=== PATIENT | female | born 1935 | race Caucasian/White ===

== ENCOUNTER 2016-11-23 10:20 | Outpatient (CLI) | payer MEDICARE, OTHER ==
[~2016-11-23] VITALS: Ht 162.6 cm; Wt 60.5 kg
--- NOTE | ~2016-11-23 | HEMODYNAMI ---
PATIENT:ALEXI ROYAL MEDICAL RECORD: [id number] : 35 LOCATION:[facility] ADMISSION DATE: 11/23/16 Generatedon:11/23/201613:51 Patient name: ALEXI ROYAL Patient #: [id number] SSN: : 1935 Date of study: 11/23/2016 Page: Of Hemodynamic Procedure Report Patient Data Patient Demographics Procedure consent was obtained First Name: ALEXI Gender: Female Last Name: LELE : 1935 Middle Initial: ROXANNA Age: 80 year(s) Patient #: [id number] Race: Unknown Additional ID: [id number] Contact details [address]: [address] [place] [address] State: [place] City: [place] Zip code: [address] Past Medical History Allergies Allergen Reaction Date Comments Reported Other allergy 11/23/2016 Codeine Admission Admission Data Admission Date: 11/23/2016 Admission Time: 10:20 Admit Source: Other Lab Results Lab Result Date: 11/23/2016 Lab Result Time: 11:05 Biochemistry Name Units Result Min Max BUN mg/dl 30 --(----)-* 7 18 Creatinine mg/dl 1.1 --(--*-)-- 0.6 1.3 CBC Name Units Result Min Max Hematocrit % 37.1 *-(----)-- 42 54 Hemoglobin g/dl 12.2 *-(----)-- 13.5 17.5 Procedure Procedure Types Cath Procedure Diagnostic Procedure LHC LH w/Coronaries PCI Procedure Coronary Stent Initial Miscellaneous Procedures Moderate Sedation up to 45 minutes Procedure Description Procedure Date Procedure Date: 11/23/2016 Procedure Start Time: 13:04 Procedure End Time: 13:50 Procedure Staff Name Function Joe Sanders MD Performing Physician Hipolito Stark RT Scrub Grace Nice RT Scrub Zain Lux RN Nurse Chinmay Nelson RN Business Functional Analyst Herberth Rios RT Monitor Procedure Data Cath Procedure Fluoroscopy Diagnostic fluoroscopy Total fluoroscopy Time: time: 14.6 min 14.6 min Diagnostic fluoroscopy Total fluoroscopy dose: 775 dose: 775 mGy mGy Contrast Material Contrast Material Type Amount (ml) Isovue 300 166 Entry Location Entry Primary Successful Side Size Upsize Upsize Entry Closure Succes sful Closure Location (Fr) 1 (Fr) 2 (Fr) Remarks Device Remarks Femoral Right 5 Fr 6 Fr Exoseal artery Short Estimated blood loss: 10 ml Diagnostic catheters Device Type Used For End Catheter Placement Cordis 5Fr JL 4.0 Procedure Catheter (MP) Cordis 5Fr 3DRC Catheter Procedure (MP) Cordis 5Fr Pigtail Procedure Catheter (MP) Procedure Complications No complications Procedure Medications Medication Administration Route Dosage Oxygen NC 2 l/min Lidocaine 2% added to field 20 Heparin Flush Bag added to field 2 bags (1000units/500ml NS) Zofran I.V. 4 mg Versed I.V. 1 mg Fentanyl I.V. 50 mcg Versed I.V. 1 mg Fentanyl I.V. 50 mcg Versed I.V. 1 mg Versed I.V. 1 mg Heparin Bolus I.V. 6000 units Plavix P.O. 600 mg Hemodynamics Rest HGB: 12.2 (g/dl) Heart Rate: 55 (bpm) Pressure Samples Time Site Value (mmHg) Purpose Heart Use Rate(bpm) 13:16 LV 123/-6,15 Snapshot 72 13:16 LV 110/-6,8 Snapshot 84 13:16 AO 112/48(73) Pullback 54 13:16 LV 102/-3,17 Pullback 54 Gradients Valve Time Site 1 Site 2 Mean SEP/DFP Peak To Heart Use (mmHg) (sec/min) Peak Rate (mmHg) (bpm) Aortic 13:16 LV AO 0 4 0 54 102/-3,17 112/48(73) Calculations Valve P-P Mean Valve Index Valve Source Name Gradient Area Flow (cm2) Aortic 0 0 0 0 Snapshots Pre Cath Intra NCS Post Cath Vital Signs Time Heart Resp SPO2 etCO2 [id number] NIBP (mmHg) Rhythm Pain Sedation Rate (ipm) (%) (mmHg) (mmHg) Status Level (bpm) 12:56:53 58 31 99 0 0 Measuring NSR 0 (11) 10(A) , No pain 12:57:32 61 19 99 0 0 No Cuff NSR 0 (11) 10(A) , No pain 12:58:38 60 17 98 0 0 140/83(112) NSR 0 (11) 10(A) , No pain 13:02:37 53 16 100 0 0 131/69(95) NSR 0 (11) 10(A) , No pain 13:06:43 54 17 98 0 0 123/63(96) NSR 0 (11) 9(A) , No pain 13:10:53 54 18 99 0 0 111/57(79) NSR 0 (11) 9(A) , No pain 13:15:44 51 16 99 0 0 111/59(90) NSR 0 (11) 9(A) , No pain 13:19:50 51 14 99 0 0 122/58(87) NSR 0 (11) 9(A) , No pain 13:23:58 49 28 99 0 0 119/62(95) NSR 0 (11) 9(A) , No pain 13:28:07 50 15 99 0 0 115/57(89) NSR 0 (11) 9(A) , No pain 13:33:07 53 14 99 0 0 117/60(95) NSR 0 (11) 9(A) , No pain 13:37:14 51 16 100 0 0 112/58(93) NSR 0 (11) 9(A) , No pain 13:41:22 48 15 100 0 0 119/60(78) NSR 0 (11) 9(A) , No pain 13:46:25 56 16 100 0 0 130/65(109) NSR 0 (11) 10(A) , No pain Medications Time Medication Route Dose Verified Delivered Reason Notes Effectiveness by by 12:55:56 Oxygen NC 2 Joe Buffie used for l/min Tommy Lux RN procedure 12:56:34 Lidocaine 2% added 20ml Joe Buffie used for to vial Tommy Lux RN procedure field 12:56:51 Heparin Flush added 2 Joe Buffie used for Bag to bags Tommy Lux RN procedure (1000units/500ml field NS) 12:57:03 Zofran I.V. 4 mg Joe Buffie Per physician Tommy Lux RN 13:03:30 Versed I.V. 1 mg Oje Buffie for sedation Tommy Lux RN 13:03:38 Fentanyl I.V. 50 Joe Buffie for sedation mcg Tommy Lux RN 13:09:34 Versed I.V. 1 mg Joe Buffie for sedation Tommy Lux RN 13:09:39 Fentanyl I.V. 50 Joe Buffie for sedation mcg Tommy Lux RN 13:24:41 Versed I.V. 1 mg Joe Buffie for sedation Tommy Lux RN 13:37:23 Versed I.V. 1 mg Joe Buffie for sedation Tommy Lux RN 13:40:09 Heparin Bolus I.V. 6,000 Joe Buffie for verifi ed units Tommy Lux RN anticoagulation with dr sanders 13:47:56 Plavix P.O. 600 Joe Buffie for mg Tommy Lux RN antiplatelet therapy Procedure Log Time Note 12:30:22 Chinmay Nelson RN sent for patient. Start room use. 12:38:56 Informed consent obtained and on chart 12:39:01 Admit Source: Other 12:39:21 Diagnostic Cath status Elective 12:39:32 Time tracking: Regular hours 12:39:36 Plan of Care:Hemodynamics will remain stable., Cardiac rhythm will remain stable., Comfort level will be maintained., Respiratory function will remain adequate., Patient/ family verbilizes understanding of procedure., Procedure tolerated without complication., Recovers from procedure without complications.. 12:40:54 H&P Date Dictated: 11/23/2016 New H&P dictated by physician.. 12:41:50 Patient received from Pre/Post Procedure Room to CCL 1 Alert and oriented. Tansferred to table in Supine position. 12:41:51 Warm blankets applied, and deandre hugger turned on for patient comfort. 12:41:51 Correct patient and procedure confirmed by team. 12:41:52 ECG and BP/O2 sat monitors applied to patient. 12:41:54 Pre-procedure instructions explained to patient. 12:41:54 Pre-op teaching completed and patient verbalized understanding. 12:43:15 Lab Result : Creatinine 1.1 mg/dl 12:43:15 Lab Result : BUN 30 mg/dl 12:43:15 Lab Result : Hemoglobin 12.2 g/dl 12:43:15 Lab Result : Hematocrit 37.1 % 12:43:40 Previous problem with sedation/anesthesia? No ? 12:43:42 Snore? Yes 12:43:43 Sleep apnea? No 12:43:46 Deviated septum? No 12:43:47 Opens mouth fully? Yes 12:43:48 Sticks out tongue? Yes 12:43:50 Airway obstruction? No ? 12:43:52 Dentures? No ? 12:43:56 Family in waiting room. 12:43:57 Patient NPO since Midnight. 12:44:08 Patient allergic to Other allergyCodeine 12:44:10 Is the patient allergic to Iodine/contrast media? No. 12:44:34 Is patient on blood thinner?Yes 12:44:36 Patient diabetic? No. 12:55:04 Vital chart was started 12:55:05 Baseline sample Acquired. 12:55:15 Rhythm: sinus rhythm 12:55:17 Full Disclosure recording started 12:55:23 Use device set Femoral Dx 12:55:24 Tegaderm 4 x 4 opened to sterile field. 12:55:25 Acist Manifold opened to sterile field. 12:55:25 Acist Hand Control opened to sterile field. 12:55:27 Acist Syringe opened to sterile field. 12:55:27 Bag Decanter opened to sterile field. 12:55:27 Medline Cath Pack opened to sterile field. 12:55:28 Terumo 5Fr Grovespring Sheath opened to sterile field. 12:55:28 St Francisco 260cm J .035 wire opened to sterile field. 12:55:30 Diagnostic Infinity 5Fr Multipack catheter opened to sterile field. 12:55:36 Lab results completed and on chart. 12:55:39 Right groin area was prepped with chlora-prep and draped in sterile fashion 12:55:40 Alarms reviewed by R. N. 12:55:40 Sharps counted by scrub and verified by R.N. 12:55:43 Physician arrived ::43 --------ALL STOP TIME OUT------ 12:55:43 Final Timeout: patient, procedure, and site verified with staff and physician. All members of the team are in agreement. 12:55:45 Right groin site verified by team. 12:55:48 Physical assessment completed. ASA score P 2 - A patient with mild systemic disease as per Joe Sanders MD. 12:55:52 Sedation plan: IV Moderate Sedation Versed, Fentanyl 12:55:56 Oxygen 2 l/min NC was administered by Zain Lux RN; used for procedure; 12:56:34 Lidocaine 2% 20ml vial added to field was administered by Zain Lux RN; used for procedure; 12:56:51 Heparin Flush Bag (1000units/500ml NS) 2 bags added to field was administered by Zain Lux RN; used for procedure; 12:57:03 Zofran 4 mg I.V. was administered by Zain Lux RN; Per physician; 13:02:45 Zero performed for pressure channel P1 13:03:16 Baseline sample Acquired. 13:03:30 Versed 1 mg I.V. was administered by Zain Lux RN; for sedation; 13:03:38 Fentanyl 50 mcg I.V. was administered by Zain Lux RN; for sedation; 13:04:41 Procedure started. 13:04:44 Local anesthetic to right femoral artery with Lidocaine 2% by Joe Sanders MD.INITIAL ACCESS ONLY 13:06:52 A 5 Fr sheath was inserted into the Right Femoral artery 13:06:58 A Cordis 5Fr JL 4.0 Catheter (MP) was advanced over the wire and used for Procedure. 13:09:34 Versed 1 mg I.V. was administered by Zain Lux RN; for sedation; 13:09:39 Fentanyl 50 mcg I.V. was administered by Zain Lux RN; for sedation; 13:09:43 LCA angiography performed. 13:10:07 Catheter exchanged over wire. 13:10:16 A Cordis 5Fr 3DRC Catheter (MP) was advanced over the wire and used for Procedure. 13:11:50 RCA angiography performed. 13:12:29 Catheter exchanged over wire. 13:12:34 A Cordis 5Fr Pigtail Catheter (MP) was advanced over the wire and used for Procedure. 13:16:26 LV gram done using SAN 13:16:28 Injector settings: Ml/sec: 10, Volume: 20, 13:16:37 EF : 50 % 13:17:48 Catheter removed. 13:17:54 Terumo 6Fr Gro[place]pring Sheath opened to sterile field. 13:18:14 High Pressure Extension Tubing (Tommy) opened to sterile field. 13:18:14 Coffey BMW [place] 2 J-tip 300cm 0.014 guide wir opened to sterile field. 13:18:15 Cordis 6FR XBLAD 3.5 guide catheter opened to sterile field. 13:18:16 Merit BasixCompak Inflation Kit opened to sterile field. 13:19:15 Sheath upsized to a 6 Fr Short. 13:20:29 6 Fr xblad 3.5 guide catheter was inserted over the wire 13:21:58 Guide Catheter removed. unable to cannulate vessel. 13:22:04 Cordis 6FR XBLAD 4.0 guide catheter opened to sterile field. 13:23:02 6 Fr xblad 4 guide catheter was inserted over the wire 13:24:41 Versed 1 mg I.V. was administered by Zain Lux RN; for sedation; 13:25:04 Guide Catheter removed. unable to cannulate vessel. 13:25:59 Medtronic Launcher 6Fr JL 4.0 guide catheter opened to sterile field. 13:28:41 6 Fr JL 4 guide catheter was inserted over the wire 13:28:47 Guide Catheter removed. unable to cannulate vessel. 13:29:01 Medtronic Launcher 6Fr AL 1.0 guide catheter opened to sterile field. 13:29:09 6 Fr AL 1 guide catheter was inserted over the wire 13:31:03 Guide Catheter removed. unable to cannulate vessel. 13:31:25 Sunn[place]ide Sci Mach 1 6Fr Q 4.0 guide catheter opened to sterile field. 13:31:30 6 Fr Q4 guide catheter was inserted over the wire 13:35:14 Guide Catheter removed. unable to cannulate vessel. 13:35:22 [place]ide Sci Mach 1 6Fr Q 3.5 guide catheter opened to sterile field. 13:35:32 6 Fr Q 3.5 guide catheter was inserted over the wire 13:37:23 Versed 1 mg I.V. was administered by Zain Lux RN; for sedation; 13:37:54 Guide Catheter removed. unable to cannulate vessel. 13:38:06 Medtronic Launcher 6Fr EBU 3.5 guide catheter opened to sterile field. 13:38:14 6 Fr EBU 3.5 guide catheter was inserted over the wire 13:40:09 Heparin Bolus 6,000 units I.V. was administered by Zain Lux RN; for anticoagulation; verified with dr sanders 13:40:27 BMW wire advanced. 13:43:50 Wire advanced across lesion. 13:43:55 Inflation Number: 1 A Medtronic Integrity 2.5 X 18 stent was prepped and advanced across the Mid LAD. The stent was deployed at 12 SIMON for 0:10 (min:sec). 13:44:03 Stent catheter was removed intact over wire. 13:44:04 Wire removed. 13:44:04 Guide catheter removed. 13:44:12 Cordis 6Fr Exoseal opened to sterile field. 13:44:21 Sheath removed intact; hemostasis achieved with Exoseal to the Right Femoral artery. 13:44:22 Procedure ended.(Physican Out) 13:44:45 Fluoroscopy time 14.60 minutes. 13:47:56 Plavix 600 mg P.O. was administered by Zain Lux RN; for antiplatelet therapy; 13:48:43 Fluoroscopy dose: 775 mGy 13:48:43 Flurop Dose total: 775 13:48:47 Contrast amount:Isovue 300 166ml. 13:48:49 Sharps counted by scrub and verified by R.N. 13:48:58 Insertion/operative site no bleeding no hematoma. 13:49:01 Post-op/insertion site Right Femoral artery dressed using a 4 x 4 and Tegaderm. 13:49:04 Post right femoral artery:stable, soft, clean and dry 13:49:06 Post Procedure Pulses reassessed and unchanged 13:49:09 Post-procedure physical assessment completed. ASA score P 2 - A patient with mild systemic disease as per Joe Sanders MD. 13:49:11 Post procedure rhythm: unchanged. 13:49:14 Estimated blood loss: 10 ml 13:49:15 Post procedure instruction explained to patient.Patient verbalizes understanding. 13:49:16 Patient needs reinforcement of post procedure teaching. 13:49:29 Procedure type changed to Cath procedure, Diagnostic procedure, LHC, LHC w/Coronaries, PCI procedure, Coronary Stent Initial, Miscellaneous Procedures, Moderate Sedation up to 45 minutes 13:50:02 Procedure and supply charges have been captured, reviewed, submitted and are correct. 13:50:11 Procedure Complication : No complications 13:50:12 Vital chart was stopped 13:50:13 See physician's report for complete and final results. 13:50:14 Report given to Pre/Post Procedure Room. 13:50:17 Patient transfered to Pre/Post Procedure Room with Stretcher. 13:50:19 Procedure ended. 13:50:19 Full Disclosure recording stopped 13:50:44 End room use (Document Last) Intervention Summary Intervention Notes Time ActionType Lesion and Equipment Action# Pressure Duration Attributes Used 13:43:55 Place stent Mid LAD Medtronic 1 12 00:10 Integrity 2.5 X 18 stent Device Usage Item Name Manufacture Quantity Catalog Number Hospital Part Current Minim al Lot# / Charge Number Stock Stock Serial# Code Tegaderm 4 3M 1 [id number] 532264 800149 065940 5 x 4 Acist Acist 1 75729 942644 217489 119126 5 Manifold Medical Systems Inc Acist Hand Acist 1 85294 675706 006892 154246 5 Control Medical Systems Inc Acist Acist 1 71049 206484 862229 121406 20 Syringe Medical Systems Inc Bag Microtek 1 2002S 084383 31819 827974 5 CBA PHARMA Inc. Medline Cardinal 1 [id number] 179356 08656 511170 5 Cath Pack Health Terumo 5Fr Terumo 1 [id number] 063839 010208 737157 [address] Francisco 1 794280 047836 143203 214892 30 260cm J .035 wire Diagnostic Cardinal 1 [id number] 662336 40349 703055 30 Infinity Health 5Fr Multipack catheter Cordis 5Fr Cardinal 1 605799 5 JL 4.0 Health Catheter (MP) Cordis 5Fr Cardinal 1 563090 5 3DRC Health Catheter (MP) Cordis 5Fr Cardinal 1 119623 5 Pigtail Health Catheter (MP) Terumo 6Fr Terumo 1 [id number] 057720 130245 514743 40 Gro[place]ring Sheath High Merit 1 [id number] 506120 06237 734898 10 Pressure Medical Extension Tubing (Sanders) Coffey BMW Coffey 1 [id number] 666956 566715 545287 5 [place] 2 Vascular J-tip 300cm 0.014 guide wir Cordis 6FR Cardinal 1 [id number] 706256 299357 216673 10 XBLAD 3.5 Health guide catheter Merit Merit 1 FF9809 865728 580956 283410 15 E-Health Records International Medical Inflation Kit Cordis 6FR Cardinal 1 [id number] 592791 549015 918855 3 XBLAD 4.0 Health guide catheter Medtronic Medtronic 1 [id number] 777705 10533 690337 1 Launcher 6Fr JL 4.0 guide catheter Medtronic Medtronic 1 [id number] 244104 76219 797877 1 Launcher 6Fr AL 1.0 guide catheter Sunnyside Sci Sunnyside 1 [id number] 581069 570053 777412 1 Mach 1 6Fr Scientific Q 4.0 guide catheter [place] Sci Sunnyside 1 [id number] 765763 863424 9231817 1 Mach 1 6Fr Scientific Q 3.5 guide catheter Medtronic Medtronic 1 [id number] 286623 98559 635273 3 Launcher 6Fr EBU 3.5 guide catheter Medtronic Medtronic 1 [id number] 740058 436083 9 [id number] Integrity 2.5 X 18 stent Cordis 6Fr Cardinal 1 EX600 291296 185295 205345 10 ONI [employer] Inc. Signature Audit [place] Stage Time Signature Unsigned Intra-Procedure 11/23/2016 Herberth Rios 1:51:21 PM RT(R) Signatures Monitor : Herberth Rios RT Signature : Date : Time : [address] [place] [address]
[2016-11-23] MEDS ORDERED: HYZAAR 100-12.51 TAB PO (10:45)
[2016-11-23] MEDS ORDERED: TENORMIN25 MG PO (10:45)
[2016-11-23] MEDS ORDERED: OMEGA-3100 MG PO (10:45)
[2016-11-23] MEDS ORDERED: XANAX0.5 MG PO (10:46)
[2016-11-23] MEDS ORDERED: ISOSORBIDE MONO20 MG PO (10:46)
[2016-11-23] MEDS ORDERED: PROTONIX40 MG PO (10:47)
[2016-11-23] MEDS ORDERED: PRAVACHOL80 MG PO (10:47)
[2016-11-23] MEDS ORDERED: K-TAB10 MEQ PO (10:48)
[2016-11-23] MEDS ORDERED: LEVOTHYROXINE75 MCG PO (10:48)
[2016-11-23] MEDS ORDERED: VITAMIN E400 UNI2 PO (10:49)
[2016-11-23] MEDS ORDERED: FLINTSTONE1 TAB.CHEW PO (10:49)
[2016-11-23] MEDS ORDERED: COUMADIN5 MG PO (10:49)
[2016-11-23 11:01] VITALS: BP 133/60; Ht 162.6 cm; Wt 60.5 kg
[2016-11-23 11:32] LABS: INR 1.02 (0.85-1.17); PROTIME 13.3 SECONDS (11.6-15.0)
[2016-11-23 11:35] LABS: ANION GAP 13.3 mmol/L (8-16); CALCIUM 10.1 mg/dL (8.5-10.1); CARBON DIOXIDE 26.8 mmol/L (21.0-32.0); CREATININE - SERUM 1.1 mg/dL (0.6-1.3); POTASSIUM - SERUM 4.1 mmol/L (3.5-5.1)
[2016-11-23 11:47] LABS: BASOPHILS 0.2 % (0-2); EOSINOPHILS 3.2 % (0-7); HEMATOCRIT 37.1 % (36.0-48.0); HEMOGLOBIN 12.2 g/dL (12-16); IMMATURE GRANULOCYTES 0.2 % (0-5); LYMPHOCYTES 28.7 % (15-50); MCH 31.8 pg (26.0-34.0); MCHC 32.9 g/dL (31.0-37.0); MCV 96.6 fL (80.0-100.0); MEAN PLATELET VOLUME 11.9 fL (7.4-10.4); MONOCYTES 13.8 % (2-11); NEUTROPHILS 53.9 % (40-80); PLATELET COUNT 145 10x3/uL (130-400); RBC 3.84 10x6/uL (4.00-5.40); RDW 13.2 % (11.5-14.5); WBC 4.9 10x3/uL (4.8-10.8)
--- NOTE | 2016-11-23 14:00 | NUR ---
1400 RECIEVED TO ROOM VIA STRETCHER FROM HEAD OF DRAMA WITH REPORTS OF ONE STENT TO THE LAD. 6 FR EXOSEAL R/GROIN CDI NO BLEEDING NO HEMATOMA NOTED. SB RATE [address] STEINBERG PRESENT TO SPEAK WITH FAMILY.
[2016-11-23] MEDS ORDERED: BAYER CHEWABLE81 MG PO (14:14)
[2016-11-23] MEDS ORDERED: PLAVIX75 MG PO (14:14)
--- NOTE | 2016-11-23 14:22 | NUR ---
VSS WITH CHEST PAIN DENIED 6 FR EXOSEAL R/GROIN CDI NO BLEEDING NO HEMATOMA NOTED. INSTRUCTED PATIENT TO KEEP HEAD FLAT ON PILLOW WITH RLE STRAIGHT. SANDWICH AND SODA TO BEDSIDE WITH DAUGHTER ASSISTING
--- NOTE | 2016-11-23 14:46 | NUR ---
6 FR EXOSEAL R/GROIN REMAINS STABLE NO BLEEDING NO HEMATOMA NOTED. CHEST PAIN IS DENIED.FAMILY AT BEDSIDE
--- NOTE | 2016-11-23 15:25 | NUR ---
ASSIST PATIENT TO BEDPAN VOIDS TO COLLECTION. NANCY CARE PROVIDED WITH R/GROIN CDI NO BLEEDING NO HEMATOMA NOTED
--- NOTE | 2016-11-23 15:49 | NUR ---
R/GROIN REMAINS CDI NO BLEEDING NO HEMATOMA NOTED. NEEDS DENIED VSS
--- NOTE | 2016-11-23 16:43 | NUR ---
NO CHANGE IN ASSESSMENT
--- NOTE | 2016-11-23 17:27 | NUR ---
REPOSITIONED TO SITTING WITH HOB UP 30 DEGREES R/GROIN REMAINS CDI NO BLEEDING NO HEMATOMA NOTED. CHEST PAIN IS DENIED
--- NOTE | 2016-11-23 17:43 | NUR ---
PIV REMOVED WITH DRESSING APPLIED PATIENT DENIED CHEST PAIN WITH 6 FR EXOSEAL R/GROIN CDI NO BLEEDING NO HEMATOMA NOTED. UP TO GET DRESSED FOR DISCHARGE HOME
--- NOTE | 2016-11-23 18:00 | NUR ---
D'C HOME WITH FAMILY, UP TO RESTROOM-VOID, DENIES PAIN OR FURTHUR NEEDS.
== END 2016-11-23 18:00 | disposition home or self-care (01) ==
LOC: D.CATH 10:20
PROVIDERS: Internal Medicine Cardiovascular Disease
DX: I20.9 Angina pectoris, unspecified (principal); R94.30 Abnormal result of cardiovascular function study, unspecified; R06.02 Shortness of breath; Z01.812 Encounter for preprocedural laboratory examination

== ENCOUNTER → 2019-05-24 10:01 | Outpatient (CLI) | payer MEDICARE, OTHER ==
[2016-11-23 11:01] VITALS: BMI 22.8
[~2019-05-24 10:01] MED LIST: BAYER CHEWABLE81 MG PO; COUMADIN5 MG PO; FLINTSTONE1 TAB.CHEW PO; HYZAAR 100-12.51 TAB PO; ISOSORBIDE MONO20 MG PO; K-TAB10 MEQ PO; LEVOTHYROXINE75 MCG PO; OMEGA-3100 MG PO; PLAVIX75 MG PO; PRAVACHOL80 MG PO; PROTONIX40 MG PO; TENORMIN25 MG PO; VITAMIN E400 UNI2 PO; XANAX0.5 MG PO
== END | disposition home or self-care (01) ==
LOC: D.CT 10:01
PROVIDERS: ATTEND Internal Medicine Cardiovascular Disease
DX: I65.23 Occlusion and stenosis of bilateral carotid arteries (principal); H53.10 Unspecified subjective visual disturbances

== ENCOUNTER → 2019-07-24 14:50 | Outpatient (CLI) | payer MEDICARE, OTHER ==
[2016-11-23 11:01] VITALS: BMI 22.8
== END | disposition home or self-care (01) ==
LOC: D.CT 14:50
PROVIDERS: ATTEND Internal Medicine Cardiovascular Disease
DX: M25.561 Pain in right knee (principal)

== ENCOUNTER 2019-08-29 05:50 | Inpatient (IN) | payer MEDICARE, OTHER ==
[2019-08-28 11:14] LABS: HEMOGLOBIN 12.7 g/dL (12-16); MCH 31.1 pg (26.0-34.0); MCHC 31.8 g/dL (31.0-37.0); MCV 97.8 fL (80.0-100.0); MEAN PLATELET VOLUME 10.6 fL (7.4-10.4); RBC 4.09 10x6/uL (4.00-5.40); WBC 6.6 10x3/uL (4.8-10.8)
[2019-08-28 11:17] LABS: APTT 24.8 SECONDS (22.8-39.4); INR 0.93 (0.85-1.17); PROTIME 12.4 SECONDS (11.6-15.0)
[2019-08-28 11:30] LABS: ALBUMIN 4.1 g/dL (3.4-5.0); ANION GAP 9.4 mmol/L (8-16); BILIRUBIN - TOTAL 0.4 mg/dL (0.2-1.3); CARBON DIOXIDE 30.5 mmol/L (21.0-32.0); CREATININE - SERUM 1.1 mg/dL (0.6-1.3); POTASSIUM - SERUM 3.9 mmol/L (3.5-5.1); PROTEIN - SERUM 7.7 g/dL (6.4-8.2)
[2019-08-28 12:12] LABS: BILIRUBIN NEGATIVE (NEGATIVE); GLUCOSE NEGATIVE (NEGATIVE); KETONE NEGATIVE (NEGATIVE); NITRITE NEGATIVE (NEGATIVE); UROBILINOGEN NORMAL (NORMAL)
[2019-08-29] VITALS (51 sets, daily range): BP systolic 114–168; BP diastolic 49–78; BMI 23.5
[~2019-08-29] VITALS: Ht 162.6 cm; Wt 65.0 kg
[~2019-08-29 05:50] MED LIST changes: +ACETAMINOPHEN500 M1 PO; +CENTRUM SILVER1 EAC3 PO; +TYLENOL PM1 TAB PO; +VITAMIN B-122500 MCG PO
--- NOTE | 2019-08-29 11:54 | NUR ---
RECIEVED FROM THE OR VIA BED WITH HEART TEAM. PLACED ON THE MONITOR. LT DLSC, DRSG C-D-I. IVF PER FLOW SHEET. LT RADIAL A-LINE ZEROED AND CALIBRATED WITH GOOD WAVE FORM AND CORRELATING WITH THE BP CUFF. RT NECK DRSG C-D-I, DEEP DRAIN WITH BULB DEPRESSED WITH SCANT AMOUNT OF BLOODY DRAINAGE. [place] CATH INTACT WITH LARGE AMOUNT OF CLEAR YELLOW URINE IN BAG. DENIES ANY PAIN OR NEEDS AT THIS TIME. SR ON THE MONITOR.
--- NOTE | 2019-08-29 13:00 | NUR ---
ICE CHIPS TAKEN. DRESSING DRY AND INTACT. DEEP DRAIN BULB COMPRESSED MINIMAL DRAINAGE NOTED. MONITOR SINUS DAT. MINIMAL THROAT DISCOMFORT.
--- NOTE | 2019-08-29 14:00 | NUR ---
DR JOHN HERE UPDATE GIVEN. DAUGHTER AT BEDSIDE. PATIENT TAKING SIPS OF WATER. SWALLOWED PILLS WITH MINIMAL DIFFICULTY. DEEP DRAIN INTACT. MINIMAL DRAINAGE. DRESSING DRY AND INTACT. ICE PACK IN PLACE. GOOD URINE OUTPUT. MONITOR SINUS DAT
--- NOTE | 2019-08-29 14:30 | NUR ---
NTG GTT ADJUST TO MAINTAIN SBP 110-140 BLOOD PRESSURE DOWN WHEN PATIENT ASLEEP, UP WHEN AWAKE.
--- NOTE | 2019-08-29 15:36 | NUR ---
NO CHANGES. NTG STILL UP AND DOWN TO MAINTAIN SBP BETWEEN 140-110. DEEP DRAIN INTACT. DRESSING DRY AND INTACT. TAKING SIPS OF WATER WITHOUT DIFFICULTY. STATES THROAT FEELS LIKE THERE SOMETHING THERE. EXPLAINED THAT IS WHERE HER SURGERY IS. HEAD OF BED ELEVATED. PULLED UP IN THE BED.
--- NOTE | 2019-08-29 19:00 | NUR ---
PT AOX4, TONGUE MIDLINE, OPERATIONS LIEUTENANT EQUAL, PERRLA. UNLABORED RESPIRATIONS, 2L O2 VIA NC, SPO2 97. S1S2 HEARD, SINUS DAT ON MONITOR. BOWEL SOUNDS ACTIVE IN ALL QUADRANTS. [place] CATH INTACT WITH YELLOW URINE TO BEDSIDE DRAINAGE. R NECK WITH DRSG CDI, MINIMAL SWELLING PRESENT, ICE PACK ON AFFECTED AREA. R UPPER CHEST WITH DEEP INTACT AND COMPRESSED. NO C/O PAIN AT THIS TIME. PT REPOSITIONED FOR COMFORT WITH PROMINENCES BRIDGED. DENIES FURTHER NEEDS. CALL LIGHT WITHIN PT REACH. CPOC.
--- NOTE | 2019-08-29 22:00 | NUR ---
FAMILY UPDATE PROVIDED, DENIES QUESTIONS AT THIS TIME.
--- NOTE | 2019-08-29 23:00 | NUR ---
REASSESSMENT COMPLETE, NO NEW CHANGES AT THIS TIME. R NECK WITH DRSG CDI, NO BLEEDING PRESENT, DEEP INTACT AND COMPRESSED. NEURO INTACT. PT REPOSITIONED WITH PROMINENCES BRIDGED. CALL LIGHT WITHIN PT REACH. CPOC.
[2019-08-30] VITALS (64 sets, daily range): BP systolic 111–150; BP diastolic 51–70
--- NOTE | 2019-08-30 01:00 | NUR ---
PT RESTING QUIETLY, AROUSES EASILY. AOX4, SHAREHOLDER EQUAL. PT REPOSITIONED FOR COMFORT. R NECK WITH MINIMAL SWELLING, DRSG CDI. R CHEST DEEP INTACT AND COMPRESSED. I/S COMPLETED REACHING 1000 X10. DENIES NEEDS. CALL LIGHT WITHIN PT REACH. CPOC.
--- NOTE | 2019-08-30 03:00 | NUR ---
REASSESSMENT COMPLETE, NO CHANGES AT THIS TIME. PT REPOSITIONED FOR COMFORT. I/S COMPLETED REACHING 1250 X10. R CHEST DEEP INTACT AND COMPRESSED. PT AOX4, MERCHANDISER SEASONAL EQUAL, PERRLA. CALL LIGHT AND BEDSIDE TABLE WITHIN PT REACH. CPOC.
--- NOTE | 2019-08-30 05:00 | NUR ---
PT AOX4, INTERNAL CONTROLS MANAGER EQUAL, PERRLA. PT REPOSITIONED FOR COMFORT, PROMINENCES BRIDGED. DENIES PAIN.
--- NOTE | 2019-08-30 07:00 | NUR ---
REPORT RECEVIED FROM THE OFF GOING RN. SEE ASSESSMENT IN THE PTS FLOW SHEET. PT LYING IN BED A&O X4. ARTURO EXAM WNL'S. ON 2L VIA NC. RIGHT ANTERIOR NECK INCISION C/D/I. RIGHT UPPER CHEST DEEP DRAIN COMPRESSED WITH SCANT AMOUNT OF SEROUSANG DRAINAGE NOTED. LEFT SUBCLAVIAN CVL NOTED. LEFT RADIAL ESTEVAN NOTED WITH A GOOD WAVE FORM. CAP REFILL <3 SECONDS. WRIST PROTECTOR ON. FC NOTED WITH CLEAR, YELLOW URINE. PT PULLING ABOUT 1000 ON HER IS. PT INSTRUCTED TO USE IS 10X'S/H. PT CALL LIGHT IN REACH. WILL CONT POC.
--- NOTE | 2019-08-30 08:55 | NUR ---
BONNIE ESTRADA IN THE UNIT FOR DR JONH. SEE ORDERS.
--- NOTE | 2019-08-30 09:35 | NUR ---
ESTEVAN MANN. DIRECT PRESSURE HELD FRO ABOUT 4 MINS. NO S/SX OF BLEEDING NOTED. PT REQUESTED THAT A WOMEN TAKES OUT HER FC. BONNIE ESTRADA TOOK THE PTS FC OUT AND DR HER DEEP DRAIN. PT TOLERATED WELL. WILL CONT POC.
--- NOTE | 2019-08-30 09:55 | NUR ---
ESTEVAN DOUGLAS'Natalio WITH THE CATHETER TIP INTACT. DIRECT PRESSURE APPLIED FOR ABOUT 4 MINS. NO BLEEDING NOTED. PRESSURE DRESSING APPLIED. PT REQUESTED A FEMALE NURSE TO PULL OUT HER FC. BONNIE ESTRADA ASSISTED WITH TAKING OUT THE FC. PT ASSISTED OOB AND INTO HER BEDSIDE CHAIR. SLOW BUT STEADY GAIT NOTED. CALL LIGHT IN REACH. WILL CONT POC.
--- NOTE | 2019-08-30 10:05 | NUR ---
DR JOHN AT THE PTS BEDSIDE. NITRO TITRATED OFF AND DR JOHN PULLED THE DEEP OUT. PT TOLERATED WELL. WILL CONT POC.
--- NOTE | 2019-08-30 11:00 | NUR ---
REASSESSMENT COMPLETED. SEE FLOW SHEET. VSS. CALL LIGHTIN REACH. WILL CONT POC.
--- NOTE | 2019-08-30 11:30 | NUR ---
MEAL TRAY PROVIDED FOR THE PT. PT TOLERATED WELL. [facility] POC.
--- NOTE | 2019-08-30 12:53 | NUR ---
BP 170/70. DR ALVARO SANTOS. START NITRO IV GTT AND GIVE 40MG IV LASIX NOW.
--- NOTE | 2019-08-30 13:45 | NUR ---
ASSISTED TO BATHROOM. VOIDED TWICE. LAST VOID WAS 250ML CLEAR YELLOW URINE. CURRENTLY ON 50MCG/MIN NITROGLYCERIN, PLASMOLYTE AT 30ML/HR. DAUGHTER AT BEDSIDE. WILL CONTINUE TO MONITOR.
--- NOTE | 2019-08-30 13:56 | OP ---
PATIENT NAME: ALEXI ROYAL MEDICAL RECORD: [id number] :35 [facility] AD[facility]ION DATE:08/29/19 SURGEON: BASIL JOHN MD DATE OF OPERATION: 08/29/2019 SURGEON: Basil John MD ANESTHESIA: General endotracheal, Dr. Bullock. OPERATION PERFORMED: Right carotid endarterectomy with patch angioplasty. PREOPERATIVE DIAGNOSIS: Severe right internal carotid artery stenosis. POSTOPERATIVE DIAGNOSIS: Severe right internal carotid artery stenosis. INDICATION FOR OPERATION: Severe right internal carotid artery stenosis. FINDINGS AT OPERATION: Severe right internal carotid artery stenosis, greater than 85% area of stenosis. There were marked EEG changes with clamping on the carotid artery and she required a shunt. ESTIMATED BLOOD LOSS: Less than 50 cc. DESCRIPTION OF PROCEDURE: After informed consent, adequate preoperative medication evaluation, the patient was brought to the operating room, placed on the table in the supine position. After induction of general endotracheal anesthesia and application of appropriate monitoring devices, the right neck and chest were prepped and draped in a sterile field, utilizing Betadine scrub, alcohol, and Betadine solution. Betadine-impregnated drape was also used. An oblique incision was made in the skin crease. Dissection carried down the fascia. Hemostasis was maintained with electrocautery. The facial vein was identified and divided. Utilizing sharp dissection, the common carotid, internal and external carotid arteries were dissected free from surrounding structures, protecting the neurological structures. The patient was given a calculated dose of heparin, after 3 minutes, clamps were applied. After 20 seconds, there were marked EEG changes; therefore, the clamps were removed. A 10-Slovak shunt was repaired. The clamps were reapplied, artery opened, shunt placed and flushed. The EEG returned to normal. The patient then underwent endarterectomy sharply. Extensive debridement and irrigation. Utilizing a CorMatrix vascular patch and running 6-0 Prolene suture, the arteriotomy was closed with a patch angioplasty technique. The shunt was removed and the last 4 stitches were placed on the clamps. All maneuvers to remove trapped air were performed. The clamps were removed sequentially. There were no EEG changes. The patient was given a calculated dose of protamine to reverse the heparin. Hemostasis was achieved. A #7 Bhavesh-Peoples drain was left in the depths of wound and brought through the base of the neck. Neck was again irrigated. Instrument count and sponge count were correct times 2. Neck was closed in layers utilizing 3-0 Vicryl on the platysma, 5-0 subcuticular Monocryl on the skin. Sterile dressings were applied. The patient tolerated procedure well and transferred to cardiovascular recovery in satisfactory condition. TRANSINT:[id number] Voice Confirmation ID: [id number] DOCUMENT ID: [id number] OPERATIVE REPORT [id number] ALEXI ROYAL EDWARD MD at 1356 CC: [id number] DICTATION DATE: 08/29/19 1136 DRY STARCH SUPERVISOR: 08/29/19 1646 ADM IN [facility] [address] [id number]
--- NOTE | 2019-08-30 14:00 | NUR ---
AMBULATED WITH PHYSICAL THERAPY.
--- NOTE | 2019-08-30 17:00 | NUR ---
MEAL TRAY DELIVERED AND SET UP. DAUGHTER AT BEDSIDE. AMBULATES TO BATHROOM WITH ASSIST. NO FURTHER NEEDS. WILL CONTINUE TO MONITOR.
--- NOTE | 2019-08-30 19:15 | NUR ---
PT A/OX4, LUNGS CLEAR, LEFT TLSC INTACT WITH PLASMALYTE AND NITRO INFUSING, OOB AD SUSIE TO BATHROOM WITH MIN ASSIST, DRSG INTACT TO RIGHT NECK AND RIGHT CHEST, VITALS STABLE
--- NOTE | 2019-08-30 21:00 | NUR ---
PT AWAKE, TAKES PO MEDS WITHOUT DIFFICULTY, NO C/O @ THIS TIME
[2019-08-31] VITALS (52 sets, daily range): BP systolic 117–170; BP diastolic 55–89; Ht 162.6 cm; Wt 65.0 kg
[2019-08-31] MEDS ORDERED: DIOVAN80 MG PO (12:59)
--- NOTE | 2019-08-31 15:22 | NUR ---
0930-RETURN CALL FROM [facility] NATALIE VERDIN-ORDERS RECIEVD AND NOTED 1015-[facility]LEV[facility] TURNED OFF PER PARAMETER 1115-NOTED NIBP INCREASED TO 149 SYS-[facility] RESTARTED AND DR JOHN SERVICE NOTIFIED 1200-DR JOHN AT BEDSIDE ORDERS RECIEVED AND NOTED-NTG PATCH PLACED
--- NOTE | 2019-08-31 15:27 | NUR ---
1450-L CVL D/C PER PROTOCOL-DRG APPLIED-WENT OVER DISCHARGE INSTRUCTIONS WITH PT AND DAUGHTER-127/78 -DISCHARGED HOME VIA WHEELCHAIR
--- NOTE | 2019-08-31 22:21 | MORECARE ---
CASE MANAGEMENT DISCHARGE SUMMARY PATIENT: ALEXI ROYAL UNIT: [id number] ADM DATE: 08/29/19 AGE: 83 : 35 SEX: F ROOM/BED: D[facility] [place] [facility] AUTHOR: VIBHA,DOC PHYSICIAN: REFERRING PHYSICIAN: ALEJANDRO JOHN MD DATE OF SERVICE: 08/31/19 Discharge Plan Patient Name: ALEXI ROYAL Facility: [facility]:[place] : 1935 Planned Disposition: Home Anticipated Discharge Date: Discharge Date: 08/31/2019 Expected LOS: Initial Reviewer: [email or web address] Initial Review Date: 08/29/2019 Generated: 08/31/19 11:20 pm Comments DCP- Discharge Planning Updated by [email or web address]: Dilia Craft on 08/31/19 9:[address] Patient Name: ALEXI ROYAL Admission Status: Elective Accout number: [id number] Admission Date: 08-29-2019 : 1935 Admission Diagnosis:OCCLUSION AND STENOSIS OF RIGHT CAROTID ARTERY Attending: ALEJANDRO JOHN Current LOS: 2 Anticipated DC Date: Planned Disposition: Home Primary Insurance: MEDICARE A & B Discharge Planning Comments: CM met with patient to complete initial dc planning assessment. CM educated patient on the CM role and verbal consent given by patient to complete assessment. Patient lives at home with family. Patient is independent. At discharge patient plans to return home and feels this is a safe discharge. CM discussed availability of home health, rehab services, and medical equipment. Patient will have family to transport home. Patient denied known discharge needs at this time. CM will continue to follow and will assist as needed with dc plans/needs. Drop Hammer Operator Helper: Dilia Craft DCPIA - Discharge Planning Initial Assessment Updated by [email or web address]: Dilia Craft on 08/31/19 10:19 pm * Is the patient Alert and Oriented? Yes * How many steps to enter\exit or inside your home? * PCP DR. DESIRE JOHN * Pharmacy [facility] * Preadmission Environment Home with Family * ADLs Independent * Other Equipment WALKER, CANES * List name and contact numbers for known caregivers / representatives who currently or will assist patient after discharge: GRAEME ROYAL [phone] * Verbal permission to speak to the caregivers and representatives has been obtained from the patient. Yes * Community resources currently utilized None * Additional services required to return to the preadmission environment? No * Can the patient safely return to the preadmission environment? Yes * Has this patient been hospitalized within the prior 30 days at any hospital? No Patient Name: ALEXI ROYAL Page [id number] at 2221 All edits/amendments must be made on the electronic document DICTATION DATE: 08/31/192219 [employer] SUPERVISOR: ODALYS 08/31/192219 RPT#: [id number] DC DATE:08/31/19 STATUS: DIS IN [address] [id number] [place] [address] END OF REPORT
== END 2019-08-31 15:35 | disposition home or self-care (01) | DRG 39 ==
LOC: D.SDCHOLD 05:50 → D.CVICU 05:50 → D.SDCHOLD 09:00 → D.CVICU 11:40
PROVIDERS: ADMIT Internal Medicine Cardiovascular Disease; ATTEND Internal Medicine Cardiovascular Disease
PROC: 03UK0JZ Supplement Right Internal Carotid Artery with Synthetic Substitute, Open Approach (ICD-10-PCS; 2019-08-29)
PROC: 03CK0ZZ Extirpation of Matter from Right Internal Carotid Artery, Open Approach (ICD-10-PCS; principal; 2019-08-29 09:00)
DX: I65.21 Occlusion and stenosis of right carotid artery (principal); I25.10 Atherosclerotic heart disease of native coronary artery without angina pectoris; I10 Essential (primary) hypertension; E03.9 Hypothyroidism, unspecified; E78.5 Hyperlipidemia, unspecified

== ENCOUNTER → 2019-09-11 08:49 | Outpatient (CLI) | payer MEDICARE, OTHER ==
[2019-08-31 09:39] VITALS: BMI 24.6
[~2019-09-11 08:49] MED LIST changes: +DIOVAN80 MG PO
[2019-09-11 09:24] LABS: ALBUMIN 3.6 g/dL (3.4-5.0); ANION GAP 9.6 mmol/L (8-16); BILIRUBIN - TOTAL 0.33 mg/dL (0.2-1.3); CALCIUM 9.9 mg/dL (8.5-10.1); CARBON DIOXIDE 31.5 mmol/L (21.0-32.0); POTASSIUM - SERUM 4.1 mmol/L (3.5-5.1); PROTEIN - SERUM 7.4 g/dL (6.4-8.2)
== END | disposition home or self-care (01) ==
LOC: D.LAB 08:49
PROVIDERS: ATTEND Internal Medicine Cardiovascular Disease
DX: E87.6 Hypokalemia (principal)